=== PATIENT | female | born 1940 | race Caucasian/White ===

== ENCOUNTER → 2017-07-07 | Outpatient (CLI) | payer OTHER ==
[~2017-07-07] MED LIST: ASPI81CH; ATOR40TA PO; COLCRYS0.6 MG PO; DILTIAZEM 24HR180 MG PO; Flecainide Acet50 MG PO; IBUP400 PO; IBUP600 PO; IBUP800; LISI20 PO; METF500C PO; NEBI5 PO; OMEP20ER PO; PERI4; PHENA200 PO; RXPHEN200 PO; RXSULTRIDS PO; SULTRIDS PO; XARELTO20 MG PO; ZESTRIL40 MG PO
== END | disposition home or self-care (01) ==
LOC: LAB 16:05 → LAB SHORT 16:05
DX: R10.2 Pelvic and perineal pain (principal)
CPT/HCPCS: 87077; 87086; 87186

== ENCOUNTER → 2018-11-30 | Outpatient (CLI) | payer OTHER ==
[~2018-11-30] MED LIST changes: +ACET500 PO; -ASPI81CH; +ASPI81CH PO; +ATOR20 PO; +DILT180 PO; +Macrobid 100 M100 MG PO; +Pyridium200 MG PO
== END | disposition home or self-care (01) ==
LOC: LAB 16:55 → LAB SHORT 16:55
DX: N39.0 Urinary tract infection, site not specified (principal)
CPT/HCPCS: 87077; 87086; 87186

== ENCOUNTER 2019-06-07 17:12 | Emergency (ER) | payer OTHER ==
[~2019-06-07] VITALS: Ht 167.6 cm; Wt 113.4 kg
[2019-06-07 17:48] LABS: BASOPHILS ABSOLUTE AUTO 0.06 K/mm3 (0.00-0.23); BASOPHILS PERCENT AUTO 1 % (0-2); EOSINOPHILS ABSOLUTE AUTO 0.37 K/mm3 (0.00-0.68); EOSINOPHILS PERCENT AUTO 6 % (0-6); Hematocrit 46.2 % (33.0-51.0); Hemoglobin 15.2 g/dL (11.5-16.0); IMMATURE GRAN ABSOLUTE AUTO 0.01 K/mm3 (0.00-0.10); IMMATURE GRAN PERCENT AUTO 0 % (0-1); LYMPHOCYTES PERCENT AUTO 23 % (21-46); MONOCYTES ABSOLUTE AUTO 1.32 K/mm3 (0.16-1.47); MONOCYTES PERCENT AUTO 22 % (4-13); Mean Corpuscular HGB 29.6 pg (26.0-34.0); Mean Corpuscular HGB Conc 32.9 g/dL (31.5-36.5); Mean Corpuscular Volume 90 fL (80-100); Mean Platelet Volume 9.3 fL (9.1-12.4); NEUTROPHILS ABSOLUTE AUTO 2.94 K/mm3 (1.96-9.15); NEUTROPHILS PERCENT AUTO 48 % (41-73); Platelet Count 205 K/mm3 (150-400); RDW Coefficient Variation 13.8 % (11.7-14.2); RDW Standard Deviation 46.3 fL (35.1-46.3); Red Blood Cell Count 5.13 M/mm3 (3.80-5.20)
[2019-06-07 18:05] LABS: Albumin, Blood 3.5 g/dL (3.4-5.0); Albumin/Globulin Ratio 0.8 (0.8-1.8); Bilirubin, Total 0.3 mg/dL (0.1-1.0); Bun/Creatinine Ratio 16.3 (12.0-20.0); Calcium, Blood 10.1 mg/dL (8.5-10.1); Creatinine, Blood 1.04 mg/dL (0.40-1.00); Globulin, Blood 4.2 g/dL (2.2-4.0); Total Protein, Blood 7.7 g/dL (6.4-8.2); Troponin I 0.031 ng/mL (0.000-0.040)
[2019-06-07 18:31] LABS: Source, Urine Clean Catch
[2019-06-07 18:36] LABS: Bilirubin, Urine Neg (Neg); Blood, Urine 3+ (Neg); Glucose Qualitative, Urine Neg (Neg); Ketones, Urine 1+ (Neg); Leukocyte Esterase, Urine 1+ (Neg); Nitrite, Urine Neg (Neg); Protein, Urine 2+ (Neg); Urobilinogen, Urine 1+ (Normal)
[2019-06-07 18:45] LABS: Appearance, Urine Hazy (Clear); Color, Urine Yellow (P-Yellow)
[2019-06-07 18:46] LABS: Bacteria Many /hpf; Calcium Oxalate Crystals Many /hpf; Red Blood Cells, Urine 0-2 /hpf (0-2); Squamous Epithelial Cells Many /hpf (Few)
[2019-06-07] MEDS ORDERED: Roxicodone5 MG PO (18:54)
== END 2019-06-07 19:34 | disposition home or self-care (01) ==
LOC: ER 17:12
PROVIDERS: Physician Assistant
DX: R10.31 Right lower quadrant pain (principal); E11.9 Type 2 diabetes mellitus without complications; E78.5 Hyperlipidemia, unspecified; K21.9 Gastro-esophageal reflux disease without esophagitis; I48.91 Unspecified atrial fibrillation; I10 Essential (primary) hypertension
CPT/HCPCS: 36415; 74176; 80053; 81001; 83690; 84484; 85025; 87077; 87086; 87186; 96361; 96374; 96375; 99284-25; J1170; J2405; J7030

== ENCOUNTER → 2020-03-15 | Outpatient (CLI) | payer OTHER ==
[~2020-03-15] MED LIST changes: +Roxicodone5 MG PO
== END | disposition home or self-care (01) ==
LOC: LAB 17:51 → LAB SHORT 17:51
DX: N39.0 Urinary tract infection, site not specified (principal)
CPT/HCPCS: 87077; 87086; 87186

== ENCOUNTER → 2021-05-14 | Outpatient (CLI) | payer OTHER | END | disposition home or self-care (01) | LOC: LAB SHORT 13:30 → LAB 13:30 | DX: N39.0 Urinary tract infection, site not specified (principal) | CPT/HCPCS: 87077; 87086; 87186 ==

== ENCOUNTER → 2021-06-23 | Outpatient (CLI) | payer OTHER | END | disposition home or self-care (01) | LOC: LAB SHORT 11:37 → LAB 11:37 | DX: R30.0 Dysuria (principal) | CPT/HCPCS: 87077; 87086; 87186 ==

== ENCOUNTER → 2021-07-01 | Outpatient (CLI) | payer OTHER | END | disposition home or self-care (01) | LOC: LAB SHORT 14:45 → LAB 14:45 | DX: R30.0 Dysuria (principal) | CPT/HCPCS: 87077; 87086; 87186 ==

== ENCOUNTER → 2022-06-17 | Outpatient (CLI) | payer OTHER | LOC: LAB 10:30 → LAB SHORT 10:30 | DX: N39.0 Urinary tract infection, site not specified (principal) | CPT/HCPCS: 87077; 87086; 87186 ==

== ENCOUNTER → 2022-10-08 | Outpatient (CLI) | payer OTHER | END | disposition home or self-care (01) | LOC: LAB 15:08 → LAB SHORT 15:08 | DX: R35.0 Frequency of micturition (principal) | CPT/HCPCS: 87086 ==

== ENCOUNTER → 2022-10-22 | Outpatient (CLI) | payer OTHER | LOC: LAB 14:45 → LAB SHORT 14:45 | DX: R30.0 Dysuria (principal) | CPT/HCPCS: 87086 ==

== ENCOUNTER → 2022-10-26 | Outpatient (CLI) | payer OTHER ==
[2022-10-27 18:20] LABS: Campylobacter Sp Not Detected (NOT DETECT)
[2022-10-27 18:21] LABS: Adenovirus F 40/41 Not Detected (NOT DETECT); Astrovirus Not Detected (NOT DETECT); Cryptosporidium Not Detected (NOT DETECT); Cyclospora Cayetanensis Not Detected (NOT DETECT); E. Coli O157 Not Detected (NOT DETECT); Entamoeba Histolytica Not Detected (NOT DETECT); Enteroaggregative E. coli-EAEC Not Detected (NOT DETECT); Enteropathogenic E. coli-EPEC Not Detected (NOT DETECT); Enterotoxigenic E. coli-ETEC Not Detected (NOT DETECT); Giardia Lamblia Not Detected (NOT DETECT); Norovirus GI/GII Detected (NOT DETECT); Plesiomonas Shigelloides Not Detected (NOT DETECT); Rotavirus A Not Detected (NOT DETECT); Salmonella Sp Not Detected (NOT DETECT); Sapovirus Not Detected (NOT DETECT); Shiga Toxin-prod E. coli-STEC Not Detected (NOT DETECT); Shigella/Enteroin E. coli-EIEC Not Detected (NOT DETECT); Vibrio Cholerae Not Detected (NOT DETECT); Vibrio Sp Not Detected (NOT DETECT); Yersinia Enterocolitica Not Detected (NOT DETECT)
== END | disposition home or self-care (01) ==
LOC: LAB 17:00 → LAB SHORT 17:00
PROVIDERS: Physician Assistant
DX: R19.7 Diarrhea, unspecified (principal)
CPT/HCPCS: 87507

== ENCOUNTER 2023-10-21 06:38 | Day surgery (SDC) | payer OTHER ==
[~2023-10-21] VITALS: Ht 170.2 cm; Wt 104.8 kg
[~2023-10-21 06:38] MED LIST changes: +AMLO10 PO; +CEFU250T47 PO; +CEPH500 PO; +GLIM2 PO; +Hair, Skin & N1 EACH PO; +MULTIVITAMIN PO
[2023-10-21 07:22] VITALS: BP 153/71
[2023-10-21] MEDS ORDERED: NS 250 ML IV ONE (07:30)
[2023-10-21] MEDS ORDERED: NS 500 ML IV ONE (08:27)
[2023-10-21] MEDS ORDERED: FentaNYL Citrate 50 MCG/ML 2 ML Injection ONE (08:27)
[2023-10-21] MEDS ORDERED: Midazolam HCl 1MG / ML 2ML Vial ONE (08:27)
[2023-10-21 09:08] VITALS: BP 152/88
[2023-10-21 09:15] VITALS: BP 143/116
[2023-10-21 09:30] VITALS: BP 131/104
--- NOTE | 2023-10-21 09:53 | NUR ---
PT VERBALIZES UNDESTANDING WRITTEN AND VERBAL INSTRUCTIONS. PT IV DC'.D CATH INTACT. PRESSURE DSG APPLIED. PT DRESSES SELF WITHOUT DIFF. DR ARREOLA SPOKE WITH PATIENT. [facility] WILL BE CONTACTING PT FOR A CONSULT/ LITHOTRIPSY. PT DC TO HOME VIA WC BY FAMILY.
== END 2023-10-21 12:11 | disposition home or self-care (01) ==
LOC: MHTC 06:38
PROC: 0T9430Z Drainage of Left Kidney Pelvis with Drainage Device, Percutaneous Approach (ICD-10-PCS; principal; 2023-10-21)
DX: N20.2 Calculus of kidney with calculus of ureter (principal); Z90.5 Acquired absence of kidney; Q60.0 Renal agenesis, unilateral; E11.9 Type 2 diabetes mellitus without complications; E78.5 Hyperlipidemia, unspecified; I10 Essential (primary) hypertension; K21.9 Gastro-esophageal reflux disease without esophagitis; Z88.0 Allergy status to penicillin; Z88.8 Allergy status to other drugs, medicaments and biological substances; Z79.899 Other long term (current) drug therapy
CPT/HCPCS: 76937; 99152; 99153; C1729; C1769; J2250; J3010; J7040; J7050; Q9967

== ENCOUNTER 2024-06-02 09:20 | Observation (INO) | payer OTHER ==
[~2024-06-02] VITALS: Ht 167.6 cm; Wt 96.9 kg
[2024-06-02] MEDS ORDERED: MethylPREDNISolone Sod Succ 125 MG Vial IV ONE (09:40)
[2024-06-02] MEDS ORDERED: Ipratropium/Albuterol SulF 2.5-0.5MG/3 ML Amp INH ONE (09:40)
[2024-06-02 10:00] LABS: BASOPHILS ABSOLUTE AUTO 0.05 K/mm3 (0.00-0.23); BASOPHILS PERCENT AUTO 0 % (0-2); EOSINOPHILS ABSOLUTE AUTO 0.08 K/mm3 (0.00-0.68); EOSINOPHILS PERCENT AUTO 1 % (0-6); Hematocrit 37.4 % (33.0-51.0); Hemoglobin 12.2 g/dL (11.5-16.0); IMMATURE GRAN ABSOLUTE AUTO 0.08 K/mm3 (0.00-0.10); IMMATURE GRAN PERCENT AUTO 1 % (0-1); LYMPHOCYTES ABSOLUTE AUTO 2.88 K/mm3 (0.84-5.20); LYMPHOCYTES PERCENT AUTO 21 % (21-46); MONOCYTES ABSOLUTE AUTO 1.71 K/mm3 (0.16-1.47); MONOCYTES PERCENT AUTO 12 % (4-13); Mean Corpuscular HGB 29.3 pg (26.0-34.0); Mean Corpuscular HGB Conc 32.6 g/dL (31.5-36.5); Mean Corpuscular Volume 90 fL (80-100); Mean Platelet Volume 8.4 fL (9.1-12.4); NEUTROPHILS ABSOLUTE AUTO 9.24 K/mm3 (1.96-9.15); NEUTROPHILS PERCENT AUTO 66 % (41-73); Platelet Count 330 K/mm3 (150-400); RDW Standard Deviation 45.7 fL (35.1-46.3); Red Blood Cell Count 4.17 M/mm3 (3.80-5.20); White Blood Cell Count 14.04 K/mm3 (4.00-11.30)
[2024-06-02 10:03] LABS: Base Excess Venous -2.1 mmol/L; Bicarbonate Venous 22.5 mmol/L (24.0-30.0); PCO2 Venous 44.8 mmHg (38-42); pH Blood Venous 7.33 (7.34-7.37)
[2024-06-02 10:21] LABS: Bun/Creatinine Ratio 14.5 (12.0-20.0); Calcium, Blood 10.3 mg/dL (8.5-10.1); Creatinine, Blood 1.73 mg/dL (0.40-1.00); Potassium, Blood 4.2 mmol/L (3.5-5.5)
[2024-06-02 10:49] LABS: Influenza A, PCR NEGATIVE (NEGATIVE); Influenza B, PCR NEGATIVE (NEGATIVE); Resp Syncytial Virus, PCR NEGATIVE (NEGATIVE); SARS-Cov-2 (COVID-19) PCR, MMC NEGATIVE (NEGATIVE)
[2024-06-02] MEDS ORDERED: Doxycycline Hyclate 100 MG in Dextrose 5% 250 ML IV ONE (13:35)
[2024-06-02] MEDS ORDERED: CefTRIAXone Sodium 1,000 MG in NS 100 ML IV ONE (13:35)
[2024-06-02] MEDS ORDERED: OXYB5 PO (14:31)
[2024-06-02] MEDS ORDERED: TAMSULOSIN HCL0.4 M1 PO (14:32)
[2024-06-02] MEDS ORDERED: OXYC5 PO (14:32)
[2024-06-02] MEDS ORDERED: VITAMIN D5000 UNIT PO (14:35)
[2024-06-02] MEDS ORDERED: Morphine Sulfate 20 MG/1ML 1 ML Oral Syringe SL PRN (16:20)
[2024-06-02] MEDS ORDERED: LORazepam 1 MG Tab PO PRN (16:20)
[2024-06-02] MEDS ORDERED: Zolpidem Tartrate 5 MG Tab PO PRN (16:25)
[2024-06-02] MEDS ORDERED: Ondansetron 4 MG TAB PO PRN (16:25)
[2024-06-02] MEDS ORDERED: FLU VACC TS2024-25(6MOS UP)/PF 45 MCG/0.5 ML SYRINGE IM SCH (16:25)
[2024-06-02] MEDS ORDERED: Ondansetron HCl 2 MG / ML 2ML Vial IV PRN (16:25)
--- NOTE | 2024-06-02 17:10 | NUR ---
PT GOING HOME WITH [facility] TOMORROW MORNING; RIDE SET UP FOR 10AM. [facility] TO DELIVER O2, HOSPITAL BED AND OVERBED TABLE PRIOR TO RIDE. HOSPICE MEDICATIONS WILL BE ORDERED BY [facility]. PT FILLED OUT NEW POLST, DNR WITH COMFORT CARE. WILL FOLLOW UP IN THE MORNING NEEDED PRIOR TO DISCHARGE.
[2024-06-02 21:00] VITALS: BP 143/60
[2024-06-02] MEDS ORDERED: Magnesium Hydroxide Conc 10 ML UDC PO SCH (21:00)
--- NOTE | 2024-06-03 06:25 | NUR ---
SHIFT SUMMARY PT A&OX3-4 AND ANSWERS QUESTIONS APPROPRIATELY. PT ARRIVED ON UNIT AROUND 2100 VIA GURNEY AND WAS TRANSFERRED VIA SLIDESHEET TO BED. PT ON COMFORT CARE. PT RECEIVED SCHEDULED AND PRN MEDICATIONS. PT RECEIVED A PARTIAL SPONGE BATH, BUT REQUESTS SHOWER TO BE HAD DURING DAY SHIFT. PT SPENT MOST OF SHIFT IN BED WITH EYES CLOSED AND RESPIRATIONS EVEN AND UNLABORED. NO ACUTE EVENTS AT THIS TIME. REPOSITONED Q2HRS. CALL LIGHT IN REACH, FALL PRECAUTIONS IN PLACE.
[2024-06-03] MEDS ORDERED: LORA1 PO (10:00)
[2024-06-03] MEDS ORDERED: ONDA4 PO (10:00)
[2024-06-03] MEDS ORDERED: ZOLP5 PO (10:01)
--- NOTE | 2024-06-03 12:14 | NUR ---
PT WAS DISCHARGED HOME WITH HOSPICE. ALL PIV'S REMOVED. PT HAS DISCHARGE PAPER WORK WITH H[facility] SCRIPTS. THIS NURSE FAXED MEDICATIONS TO TO BE FILLED AT [facility]. PT HAS NO QUESTIONS OR CONCERNS.
== END 2024-06-03 12:50 | disposition hospice, home (50) ==
LOC: ER 09:20 → MEDS 09:21 → ERHOLD 09:21 → MEDS 21:35
PROVIDERS: Emergency Medicine; ADMIT Internal Medicine
DX: J96.01 Acute respiratory failure with hypoxia (principal); C34.92 Malignant neoplasm of unspecified part of left bronchus or lung; C34.91 Malignant neoplasm of unspecified part of right bronchus or lung; E11.9 Type 2 diabetes mellitus without complications; I10 Essential (primary) hypertension; I48.91 Unspecified atrial fibrillation; K21.9 Gastro-esophageal reflux disease without esophagitis; Z51.5 Encounter for palliative care; Z93.6 Other artificial openings of urinary tract status; Z88.8 Allergy status to other drugs, medicaments and biological substances; Z79.899 Other long term (current) drug therapy
CPT/HCPCS: 0241U; 71045; 71260; 80048; 82803; 83880; 84484; 85025; 85379; 93005; 93010; 94640; 94664; 96365; 96375; 99285-25; A9270; G0378; J0696; J2919; J7060; Q9967

== ENCOUNTER 2024-06-22 17:58 | Inpatient (IN) | payer OTHER ==
[~2024-06-22] VITALS: Ht 167.6 cm; Wt 95.8 kg
[~2024-06-22 17:58] MED LIST changes: +ATOR10 PO; +DILT120 PO; +Flomax0.4 MG PO; +LORA1 PO; +ONDA4 PO; +OXYB5 PO; +OXYC5 PO; +TAMSULOSIN HCL0.4 M1 PO; +VITAMIN D5000 UNIT PO; +ZOLP5 PO
[2024-06-22 18:58] LABS: BASOPHILS ABSOLUTE AUTO 0.07 K/mm3 (0.00-0.23); BASOPHILS PERCENT AUTO 1 % (0-2); EOSINOPHILS PERCENT AUTO 1 % (0-6); Hematocrit 46.3 % (33.0-51.0); Hemoglobin 14.6 g/dL (11.5-16.0); IMMATURE GRAN ABSOLUTE AUTO 0.03 K/mm3 (0.00-0.10); IMMATURE GRAN PERCENT AUTO 0 % (0-1); LYMPHOCYTES ABSOLUTE AUTO 1.34 K/mm3 (0.84-5.20); LYMPHOCYTES PERCENT AUTO 14 % (21-46); MONOCYTES ABSOLUTE AUTO 1.04 K/mm3 (0.16-1.47); MONOCYTES PERCENT AUTO 11 % (4-13); Mean Corpuscular HGB 28.9 pg (26.0-34.0); Mean Corpuscular HGB Conc 31.5 g/dL (31.5-36.5); Mean Corpuscular Volume 92 fL (80-100); Mean Platelet Volume 9.1 fL (9.1-12.4); NEUTROPHILS ABSOLUTE AUTO 6.74 K/mm3 (1.96-9.15); NEUTROPHILS PERCENT AUTO 72 % (41-73); Platelet Count 232 K/mm3 (150-400); RDW Standard Deviation 49.8 fL (35.1-46.3); Red Blood Cell Count 5.05 M/mm3 (3.80-5.20); White Blood Cell Count 9.32 K/mm3 (4.00-11.30)
[2024-06-22 19:27] LABS: Albumin, Blood 2.9 g/dL (3.4-5.0); Albumin/Globulin Ratio 0.6 (0.8-1.8); Bilirubin, Total 0.7 mg/dL (0.1-1.0); Bun/Creatinine Ratio 15.6 (12.0-20.0); Calcium, Blood 10.5 mg/dL (8.5-10.1); Creatinine, Blood 1.8 mg/dL (0.40-1.00); Globulin, Blood 4.9 g/dL (2.2-4.0); Potassium, Blood 5.3 mmol/L (3.5-5.5); Total Protein, Blood 7.8 g/dL (6.4-8.2)
[2024-06-22 21:50] LABS: Magnesium, Blood 2.5 mg/dL (1.6-2.4)
[2024-06-22 22:42] LABS: Anti-Xa UFH, PHA Monitoring <0.10 IU/mL; International Normalized Ratio 1.08; Prothrombin Time Results 11.5 Sec (9.7-11.5)
[2024-06-22] MEDS ORDERED: FLU VACC TS2024-25(6MOS UP)/PF 45 MCG/0.5 ML SYRINGE IM ONE (22:45)
[2024-06-22] MEDS ORDERED: Heparin Sodium 5000 Units/ML 1ML MDV IV ONE (23:15)
[2024-06-22] MEDS ORDERED: Heparin Sodium,Porcine/0.5 NS 500 ML IV SCH (23:20)
[2024-06-22 23:59] LABS: Influenza A, PCR NEGATIVE (NEGATIVE); Influenza B, PCR NEGATIVE (NEGATIVE); Resp Syncytial Virus, PCR NEGATIVE (NEGATIVE); SARS-Cov-2 (COVID-19) PCR, MMC NEGATIVE (NEGATIVE)
[2024-06-23 00:54] VITALS: BP 126/70
[2024-06-23] MEDS ORDERED: Acetaminophen 325 MG TABLET PO PRN (01:25)
--- NOTE | 2024-06-23 03:25 | NUR ---
SHIFT SUMMURY: TRANSFERED FROM ER REPORT RECEIVED FROM MARY TYLER. ALERT AND ORIENTED X 4. ON 6 L NASAL CANULA. SATURATION >90 AT REST AND DESATURATES WITH ACTIVITES TO 88%. HEART RATE 86 NORMAL SINUS RYTHM.ON HEPARIN DRIP FOR PE AT 18U/KG/HR OR 27.0 ML. NO SIGNS OF BLEEDING NOTED. REDDENED COCCYX AREA STAGE I PRESSUREINJURY PHYSICIAN AWARE. ON CONTACT ISOLATION FOR ESBL. C/O PAIN OF BILATERAL HIP CHRONIC PAIN PER PATIENT.MEDICATED FOR PAIN AND REPORTS RELIEF. PATIENT EXPRESSED HER WISHES FOR DNR TO PHYSICIAN AT BEDSIDE. CODE STATUS CHANGED TO DNR. PUREWICK IN PLACE. BED IS AT THE LOWEST POSITON AND CALL ZELAYA IS WITHIN REACH.
[2024-06-23 04:34] VITALS: BP 117/55
[2024-06-23 06:30] LABS: BASOPHILS ABSOLUTE AUTO 0.08 K/mm3 (0.00-0.23); BASOPHILS PERCENT AUTO 1 % (0-2); EOSINOPHILS ABSOLUTE AUTO 0.16 K/mm3 (0.00-0.68); EOSINOPHILS PERCENT AUTO 2 % (0-6); Hematocrit 41.6 % (33.0-51.0); Hemoglobin 13.1 g/dL (11.5-16.0); IMMATURE GRAN ABSOLUTE AUTO 0.03 K/mm3 (0.00-0.10); IMMATURE GRAN PERCENT AUTO 0 % (0-1); LYMPHOCYTES ABSOLUTE AUTO 2.96 K/mm3 (0.84-5.20); LYMPHOCYTES PERCENT AUTO 28 % (21-46); MONOCYTES ABSOLUTE AUTO 1.67 K/mm3 (0.16-1.47); MONOCYTES PERCENT AUTO 16 % (4-13); Mean Corpuscular HGB Conc 31.5 g/dL (31.5-36.5); Mean Corpuscular Volume 92 fL (80-100); Mean Platelet Volume 9.6 fL (9.1-12.4); NEUTROPHILS ABSOLUTE AUTO 5.55 K/mm3 (1.96-9.15); NEUTROPHILS PERCENT AUTO 53 % (41-73); Platelet Count 195 K/mm3 (150-400); RDW Coefficient Variation 14.9 % (11.7-14.2); RDW Standard Deviation 49.7 fL (35.1-46.3); Red Blood Cell Count 4.52 M/mm3 (3.80-5.20); White Blood Cell Count 10.45 K/mm3 (4.00-11.30)
[2024-06-23 06:57] LABS: Albumin, Blood 2.5 g/dL (3.4-5.0); Albumin/Globulin Ratio 0.6 (0.8-1.8); Bilirubin, Total 0.6 mg/dL (0.1-1.0); Bun/Creatinine Ratio 16.8 (12.0-20.0); Calcium, Blood 9.8 mg/dL (8.5-10.1); Creatinine, Blood 1.9 mg/dL (0.40-1.00); Globulin, Blood 4.1 g/dL (2.2-4.0); Magnesium, Blood 2.5 mg/dL (1.6-2.4); Potassium, Blood 4.5 mmol/L (3.5-5.5); Total Protein, Blood 6.6 g/dL (6.4-8.2)
[2024-06-23] MEDS ORDERED: Dose Adjust by Pharmacy XX STA ×2 (07:10→14:35)
[2024-06-23] MEDS ORDERED: Insulin Human Lispro 100 Units/ML 3ML Syringe SC SCH (07:30)
[2024-06-23 07:36] VITALS: BP 130/59
[2024-06-23] MEDS ORDERED: AMLO5 PO (09:59)
[2024-06-23] MEDS ORDERED: ONDA4 PO (10:02)
[2024-06-23] MEDS ORDERED: ZOLP5 PO (10:03)
[2024-06-23] MEDS ORDERED: NITR100CA PO (10:04)
--- NOTE | 2024-06-23 11:49 | NUR ---
Spiritual Care | Pt. Request Pt. is awake in bed when she welcomes my visit. Pt. is pleasant. facilitae a life review and Pt. verbalizes a good deal of her life story, including the fairly recent adoption of her 6 yr. old great granddaughter. Listen with interest and empathy. Pt. verbalizes that she does not have any great pain, except for some bedsores, and that she felt frustrated by not being able to be mobile. We Considered many personal areas of mohan and belief. Pastoral counseling and encouragement is given. Pt. verbalized gratitude for the "good word" that was given. Prayed with Pt. Pt. verbalized gratitude for the time spent and the spiritual care given.
[2024-06-23] MEDS ORDERED: Banana Flakes/Tos 1 EA Powder Pack PO PRN (12:05)
[2024-06-23] MEDS ORDERED: Docusate Sodium 100 MG Cap PO PRN (12:05)
[2024-06-23 15:00] VITALS: BP 106/51
--- NOTE | 2024-06-23 17:27 | NUR ---
SHIFT SUMMARY PT A&OX4. SP02>90% ON 6L NC. SOB W/ EXERTION/LAYING FLAT. TELEMETRY SHOWS NSR, HR 80'S. C/O OF ARTHRITIC HIP PAIN, MEDICATED W/ TYLENOL PER EMAR X1. BED CARTER USED TO VOID. NO BM THIS SHIFT. PT STATES, NO BM X4 DAYS, BOWEL CARE ADDED TO EMAR. ECHO DONE THIS SHIFT. HEP GTT INFUSING PER EMAR. UPDATED DAUGHTER, HOWARD. DAUGHTER ASKING FOR PT TO BE ORDERED MED REC DONE. PT SITTING UP IN BED, EATING DINNER. CALL LIGHT IN REACH.
--- NOTE | 2024-06-23 19:52 | NUR ---
ASSUMPTION OF CARE ASSUMED PT'S CARE AT 1900,BEDSIDE [facility].PT RESTING IN BED WITH EYES CLOSED,NO S/S OF PAIN OR DISCOMFORT NOTED.BREATHING EVEN AND NON LABORED,ON 6L OXYGEN VIA HUMIDIFIED NC.CALL LIGHT ND PT'S ITEMS WITHIN REACH.WILL CONTINUE TO MONITOR.
[2024-06-23 20:16] VITALS: BP 129/67
[2024-06-23 22:52] LABS: Source, Urine Clean Catch
[2024-06-23 22:55] LABS: Bilirubin, Urine Neg (Neg); Blood, Urine 5+ (Neg); Glucose Qualitative, Urine Neg (Neg); Ketones, Urine Neg (Neg); Leukocyte Esterase, Urine 3+ (Neg); Nitrite, Urine Pos (Neg); Protein, Urine 3+ (Neg); Specific Gravity, Urine 1.015 (1.003-1.022); Urobilinogen, Urine NORM (Normal)
[2024-06-23 23:00] LABS: Appearance, Urine Cloudy (Clear); Color, Urine Yellow (P-Yellow)
[2024-06-23 23:02] LABS: Bacteria Many /hpf; Squamous Epithelial Cells Few /hpf (Few); White Blood Cells, Urine TNTC /hpf (0-5)
[2024-06-24 00:45] VITALS: BP 129/65
[2024-06-24 02:14] LABS: BASOPHILS ABSOLUTE AUTO 0.05 K/mm3 (0.00-0.23); BASOPHILS PERCENT AUTO 1 % (0-2); EOSINOPHILS ABSOLUTE AUTO 0.49 K/mm3 (0.00-0.68); EOSINOPHILS PERCENT AUTO 6 % (0-6); Hematocrit 39.5 % (33.0-51.0); Hemoglobin 12.3 g/dL (11.5-16.0); IMMATURE GRAN ABSOLUTE AUTO 0.02 K/mm3 (0.00-0.10); IMMATURE GRAN PERCENT AUTO 0 % (0-1); LYMPHOCYTES ABSOLUTE AUTO 2.03 K/mm3 (0.84-5.20); LYMPHOCYTES PERCENT AUTO 25 % (21-46); MONOCYTES ABSOLUTE AUTO 1.23 K/mm3 (0.16-1.47); MONOCYTES PERCENT AUTO 15 % (4-13); Mean Corpuscular HGB 29.1 pg (26.0-34.0); Mean Corpuscular HGB Conc 31.1 g/dL (31.5-36.5); Mean Corpuscular Volume 93 fL (80-100); Mean Platelet Volume 9.7 fL (9.1-12.4); NEUTROPHILS ABSOLUTE AUTO 4.25 K/mm3 (1.96-9.15); NEUTROPHILS PERCENT AUTO 53 % (41-73); Platelet Count 203 K/mm3 (150-400); RDW Coefficient Variation 14.8 % (11.7-14.2); RDW Standard Deviation 50.3 fL (35.1-46.3); Red Blood Cell Count 4.23 M/mm3 (3.80-5.20); White Blood Cell Count 8.07 K/mm3 (4.00-11.30)
[2024-06-24 02:33] LABS: Albumin, Blood 2.4 g/dL (3.4-5.0); Albumin/Globulin Ratio 0.6 (0.8-1.8); Bilirubin, Total 0.3 mg/dL (0.1-1.0); Bun/Creatinine Ratio 20.4 (12.0-20.0); Calcium, Blood 9.3 mg/dL (8.5-10.1); Creatinine, Blood 1.57 mg/dL (0.40-1.00); Globulin, Blood 3.9 g/dL (2.2-4.0); Potassium, Blood 4.5 mmol/L (3.5-5.5); Total Protein, Blood 6.3 g/dL (6.4-8.2)
[2024-06-24] MEDS ORDERED: Dose Adjust by Pharmacy XX STA (03:13)
[2024-06-24 04:45] VITALS: BP 145/65
--- NOTE | 2024-06-24 06:48 | NUR ---
PT HAS BEEN SLEEPING ON/OFF THROUGHOUT THE NIGHT.MAINTAINED OXYGEN SATURATION >92% ON 4L VIA NC.HEPARIN GTT INFUSING AND TITRATED ORDERED.PT EDUCATED ON THE S/S OF BLEEDING.PT VERBALIZES UNDERSTANDING.PT DENIES PAIN,DENIES NEEDS AT THIS TIME.CALL LIGHT AND PT'S ITEMS WITHIN REACH.WILL GIVE REPORT TO DAYSHIFT NURSE FOR CONTINUITY OF CARE.
[2024-06-24 07:49] VITALS: BP 128/65
[2024-06-24] MEDS ORDERED: CefTRIAXone Sodium 1,000 MG in NS 100 ML IV SCH (11:00)
[2024-06-24 11:48] VITALS: BP 135/72
[2024-06-24 15:06] VITALS: BP 130/67
--- NOTE | 2024-06-24 18:00 | NUR ---
SHIFT SUMMARY PT REMAINS ALERT AND ORIENTED. BP STABLE. HR REMAINS NSR. PT COMPLAINED OF PAIN IN HER HIPS THAT WAS RELEIVED WITH MEDICATION ADMINISTRATION AND REPOSITIONING. O2 SATS HAVE REMAINED ABOVE 90% ON 4L NC. PT REPORTS BREATHING HAS IMPROVED. PT UP TODAY AT THE SIDE OF THE BED WITH PHYSICAL THERAPY. PUREWICK DEVICE IN PLACE FOR INCONTINENCE. WILL CONTINUE PLAN OF CARE AND REPORT OFF TO ONCOMING RN
--- NOTE | 2024-06-24 19:25 | NUR ---
ASSUMPTION OF CARE ASSUMED PT'S CARE AT 1900,BEDSIDE REPORT COMPLETED WITH [facility] NURSE.PT AWAKE WATCHING TV.PLAN OF CARE REVIEWED.PT DENIES PAIN,DENIES SOB,DENIES NEEDS AT THIS TIME.CALL LIGHT AND PT'S ITEMS WITHIN REACH,WILL CONTINUE TO MONITOR.
[2024-06-24 20:09] VITALS: BP 133/66
[2024-06-25 00:23] VITALS: BP 153/65
[2024-06-25 03:30] LABS: Hemoglobin 11.9 g/dL (11.5-16.0); Mean Platelet Volume 9.7 fL (9.1-12.4); Platelet Count 220 K/mm3 (150-400)
[2024-06-25 04:24] VITALS: BP 140/60
[2024-06-25] MEDS ORDERED: Dose Adjust by Pharmacy XX STA (04:32)
--- NOTE | 2024-06-25 06:19 | NUR ---
PT SLEPT MOST OF THE NIGHT,PT'S OXYGEN SATURATION >91% ON 4L VIA NC.PT OCCASIONALLY TOOK THE THE NASAL CANNULA OFF AND OXYGEN SATURATION WOULD DROP DOWN TO 81%.PT DENIES PAIN,DENIES SOB ,DENIES NEEDS AT THIS TIME.HEPARIN GTT INFUSING ORDERED.WILL GIVE REPORT TO DAYSHIFT NURSE FOR CONTINUITY OF CARE.CALL LIGHT ND PT'S ITEMS WITHIN REACH.
[2024-06-25 07:49] VITALS: BP 146/62
[2024-06-25 11:17] VITALS: BP 148/70
[2024-06-25] MEDS ORDERED: CefOXitin Sodium 1,000 MG in NS 50 ML IV SCH (13:00)
[2024-06-25 15:15] VITALS: BP 128/74
--- NOTE | 2024-06-25 17:09 | NUR ---
SHIFT SUMMARY PT REMAINS ALERT AND ORIENTED. BP STABLE. HR REMAINS NSR 80'S. PT DENIES ANY PAIN. O2 SATS HAVE REMAINED ABOVE 90% ON 4L NC. PT UP TO CHAIR WITH 1 ASSIST THIS SHIFT. PT NOW USING THE BSC NEEDED AND NO LONGER USING THE PUREWICK DEVICE TO VOID. HEP GTT CONTINUES TO INFUSE PER ORDERS. WILL CONTINUE PLAN OF CARE AND REPORT OFF TO ONCOMING RN
--- NOTE | 2024-06-25 19:39 | NUR ---
ASSUMPTION OF CARE ASSUMED PT'S CARE AT 1900,JAY REPORT COMPLETED WITH [facility] NURSE.PT WIDE AWAKE WATCHING TV AND USING HER TABLET TOO.PLAN OF CARE REVIEWED.HEPARIN INFUSING AT 17UNITS/KG/HR.PT DENIES PAIN,DENIES SOB,DENIES NEEDS.CALL LIGHT AND PT'S ITEMS WITHIN REACH.WILL CONTINUE TO MONITOR.
[2024-06-25 20:01] VITALS: BP 131/63
[2024-06-26] VITALS (7 sets, daily range): BP systolic 125–162; BP diastolic 59–71
[2024-06-26 03:03] LABS: BASOPHILS ABSOLUTE AUTO 0.05 K/mm3 (0.00-0.23); BASOPHILS PERCENT AUTO 1 % (0-2); EOSINOPHILS ABSOLUTE AUTO 0.35 K/mm3 (0.00-0.68); EOSINOPHILS PERCENT AUTO 5 % (0-6); Hematocrit 39.4 % (33.0-51.0); Hemoglobin 12.1 g/dL (11.5-16.0); IMMATURE GRAN ABSOLUTE AUTO 0.03 K/mm3 (0.00-0.10); IMMATURE GRAN PERCENT AUTO 1 % (0-1); LYMPHOCYTES ABSOLUTE AUTO 1.86 K/mm3 (0.84-5.20); LYMPHOCYTES PERCENT AUTO 29 % (21-46); MONOCYTES ABSOLUTE AUTO 0.98 K/mm3 (0.16-1.47); MONOCYTES PERCENT AUTO 15 % (4-13); Mean Corpuscular HGB Conc 30.7 g/dL (31.5-36.5); Mean Corpuscular Volume 95 fL (80-100); Mean Platelet Volume 9.3 fL (9.1-12.4); NEUTROPHILS ABSOLUTE AUTO 3.18 K/mm3 (1.96-9.15); NEUTROPHILS PERCENT AUTO 49 % (41-73); Platelet Count 227 K/mm3 (150-400); RDW Coefficient Variation 15.4 % (11.7-14.2); Red Blood Cell Count 4.17 M/mm3 (3.80-5.20); White Blood Cell Count 6.45 K/mm3 (4.00-11.30)
[2024-06-26 03:21] LABS: Albumin, Blood 2.3 g/dL (3.4-5.0); Albumin/Globulin Ratio 0.6 (0.8-1.8); Bilirubin, Total 0.2 mg/dL (0.1-1.0); Bun/Creatinine Ratio 15.3 (12.0-20.0); Calcium, Blood 9.8 mg/dL (8.5-10.1); Creatinine, Blood 1.24 mg/dL (0.40-1.00); Globulin, Blood 4.1 g/dL (2.2-4.0); Potassium, Blood 4.7 mmol/L (3.5-5.5); Total Protein, Blood 6.4 g/dL (6.4-8.2)
[2024-06-26] MEDS ORDERED: Dose Adjust by Pharmacy XX STA (04:26)
--- NOTE | 2024-06-26 06:29 | NUR ---
PT REPORTS THAT SHE HAD A RESTFUL NIGHT BETTER THAN THE PREVIOUS NIGHT.OXYGEN SATURATION >91% ON 4L.HEPARIN GTT INFUSING ORDERED.PT DENIES PAIN,DENIES NEEDS.CALL LIGHT AND PT'S ITEMS WITHIN REACH.WILL GIVE REPORT TO DAYSHIFT NURSE FOR CONTINUITY OF CARE.
--- NOTE | 2024-06-26 08:00 | NUR ---
[place] of care: Alert & oriented. In NSR in 80-90s. Blood pressure stable. Oxygen saturations stable on 4L NC with diminished breath sounds & non-productive cough. Taking good PO. Heparin gtt at 17 units/kg/hr. Will continue to monitor.
--- NOTE | 2024-06-26 17:15 | NUR ---
Shift summary: Remains alert & oriented. OOB to chair for part of the day. In NSR in 70-90s. SBP 120-140. On 4L NC with stable oxygen sats. Diminished lung sounds. Voiding in bsc. Good PO intake. Heparin gtt remains at 17 units/kg/hr. Orders for med no tele. Will await bed transfer & continu to monitor.
--- NOTE | 2024-06-26 19:41 | NUR ---
ASSUMPTION OF CARE PT SLEEPING,OPENS EYES UPON NURSES ENTERING THE ROOM.BEDSIDE REPORT COMPLETED.PT DENIES PAIN,DENIES CHEST PAIN,DENIES NEEDS.PT'S OXYGEN SATURATION 99% ON 4L,OXYGEN FLOW RATE TITRATED DOWN TO 2L.PLAN OF CARE REVIEWED.CALL LIGHT AND PT'S ITEMS WITHIN REACH.WILL CONTINUE TO MONITOR.
[2024-06-27 00:28] VITALS: BP 145/71
[2024-06-27 03:40] LABS: BASOPHILS ABSOLUTE AUTO 0.05 K/mm3 (0.00-0.23); BASOPHILS PERCENT AUTO 1 % (0-2); EOSINOPHILS PERCENT AUTO 7 % (0-6); Hematocrit 39.3 % (33.0-51.0); Hemoglobin 12.1 g/dL (11.5-16.0); IMMATURE GRAN ABSOLUTE AUTO 0.04 K/mm3 (0.00-0.10); IMMATURE GRAN PERCENT AUTO 1 % (0-1); LYMPHOCYTES ABSOLUTE AUTO 1.66 K/mm3 (0.84-5.20); LYMPHOCYTES PERCENT AUTO 27 % (21-46); MONOCYTES PERCENT AUTO 15 % (4-13); Mean Corpuscular HGB 28.7 pg (26.0-34.0); Mean Corpuscular HGB Conc 30.8 g/dL (31.5-36.5); Mean Corpuscular Volume 93 fL (80-100); Mean Platelet Volume 9.2 fL (9.1-12.4); NEUTROPHILS ABSOLUTE AUTO 3.08 K/mm3 (1.96-9.15); NEUTROPHILS PERCENT AUTO 50 % (41-73); Platelet Count 246 K/mm3 (150-400); RDW Coefficient Variation 15.5 % (11.7-14.2); RDW Standard Deviation 52.7 fL (35.1-46.3); Red Blood Cell Count 4.21 M/mm3 (3.80-5.20); White Blood Cell Count 6.13 K/mm3 (4.00-11.30)
[2024-06-27 03:57] LABS: Bun/Creatinine Ratio 13.6 (12.0-20.0); Calcium, Blood 10.6 mg/dL (8.5-10.1); Creatinine, Blood 1.1 mg/dL (0.40-1.00); Potassium, Blood 4.8 mmol/L (3.5-5.5)
[2024-06-27 04:37] VITALS: BP 144/60
[2024-06-27] MEDS ORDERED: Dose Adjust by Pharmacy XX STA (04:50)
--- NOTE | 2024-06-27 06:44 | NUR ---
PT SLEPT ON/OFF,ASSISTED TO THE BEDSIDE COMMODE OR BEDPAN PER PT'S REQUEST.PT'S OXYGEN TITRATED DOWN TO 2L,OXYGEN SATURATION >92% AT REST, REQUIRED INCREASE IN OXYGEN FLOWRATE TO 4L WITH ACTIVITY.PT REPORTS THAT SHE FLEELS CONSTIPATED,REFUSED THE PRN DOCUSATE.PT STATES THAT SHE WOULD LIKE AN ENEMA OR SUPPOSITORY.PT STATES THAT SHE HAS NOT HAD A BOWEL MOVEMENT FOR 6 DAYS.PT REMINDED THAT SHE HAD A BOWEL MOVEMENT ON WEDNESDAY.PT STATES THAT SHE STILL WANTS AN ENEMA.PT DENIES SOB,DENIES PAIN,DENIES FURTHER NEEDS.CALL LIGHT AND PT'S ITEMS WITHIN REACH.WILL GIVE REPORT TO DAYSHIFT NURSE FOR CONTINUITY OF CARE.
[2024-06-27 07:35] VITALS: BP 147/69
[2024-06-27 16:31] VITALS: BP 153/67
--- NOTE | 2024-06-27 18:51 | NUR ---
SHIFT SUMMARY: PT A&OX4. FOLLOWS COMMANDS AND MAKES NEEDS KNOWN TO STAFF. PT GO UP TO THE BSC WITH 1P SBA. DENIES ANY CP OR SOB DURING SHIFT. PT HAS SKIN BREAK DOWN TO HER COCCYX. A MEPALIX WAS APPLIED AND PT HAS BEEN TURNED Q2 HOURS. PT CONTINUES ON HEPARIN GTT. NO ACUTE CHANGES OR SIGNIFICANT EVENTS HAPPENED DURING THIS SHIFT. WILL CONTINUE TO CARE FOR PT TILL END OF SHIFT.
[2024-06-27 19:45] VITALS: BP 167/68
--- NOTE | 2024-06-27 21:13 | NUR ---
UP WT ASSIST TO BEDSIDE COMMODE, PT PULLED ON IV LINE AND CAUSED SLIGHT LEAK WITH CONNECTION. CONNECTION FIXED, SLIGHT BLEEDING OF AREA, PT REFUSED TO ALLOW DRESSING CHANGE, DRESSING CLEANED. AND REINFORCED. HEPARIN DRIP CONTINUES. CALL LIGHT IN REACH
[2024-06-28 00:32] VITALS: BP 160/61
--- NOTE | 2024-06-28 00:32 | NUR ---
TRANSFERRED TO [facility] ROOM 364 WITH ALL BELONGINGS AND MEDS. REMAINS ON O2 AT 2L/MIN PER NC. MED NURSE RECEIVED REPORT.
[2024-06-28 03:20] LABS: BASOPHILS ABSOLUTE AUTO 0.05 K/mm3 (0.00-0.23); BASOPHILS PERCENT AUTO 1 % (0-2); EOSINOPHILS ABSOLUTE AUTO 0.44 K/mm3 (0.00-0.68); EOSINOPHILS PERCENT AUTO 7 % (0-6); Hematocrit 39.5 % (33.0-51.0); Hemoglobin 12.3 g/dL (11.5-16.0); IMMATURE GRAN ABSOLUTE AUTO 0.03 K/mm3 (0.00-0.10); IMMATURE GRAN PERCENT AUTO 1 % (0-1); LYMPHOCYTES ABSOLUTE AUTO 1.86 K/mm3 (0.84-5.20); LYMPHOCYTES PERCENT AUTO 28 % (21-46); MONOCYTES ABSOLUTE AUTO 0.95 K/mm3 (0.16-1.47); MONOCYTES PERCENT AUTO 14 % (4-13); Mean Corpuscular HGB 28.8 pg (26.0-34.0); Mean Corpuscular HGB Conc 31.1 g/dL (31.5-36.5); Mean Corpuscular Volume 93 fL (80-100); Mean Platelet Volume 9.2 fL (9.1-12.4); NEUTROPHILS ABSOLUTE AUTO 3.31 K/mm3 (1.96-9.15); NEUTROPHILS PERCENT AUTO 50 % (41-73); Platelet Count 259 K/mm3 (150-400); RDW Coefficient Variation 15.5 % (11.7-14.2); RDW Standard Deviation 51.7 fL (35.1-46.3); Red Blood Cell Count 4.27 M/mm3 (3.80-5.20); White Blood Cell Count 6.64 K/mm3 (4.00-11.30)
[2024-06-28 03:25] LABS: Bun/Creatinine Ratio 12.1 (12.0-20.0); Calcium, Blood 10.9 mg/dL (8.5-10.1); Creatinine, Blood 1.07 mg/dL (0.40-1.00); Potassium, Blood 4.7 mmol/L (3.5-5.5)
[2024-06-28 04:26] VITALS: BP 166/63
[2024-06-28] MEDS ORDERED: Dose Adjust by Pharmacy XX STA (04:55)
[2024-06-28 07:41] VITALS: BP 169/69
--- NOTE | 2024-06-28 07:57 | NUR ---
TRANSFER NOTE RECIEVED PT FROM PCU 16 TO RM 364 AT 0030. THIS RN TO ASSUME CARE.
--- NOTE | 2024-06-28 07:58 | NUR ---
SHIFT SUMMARY PT HAS BEEN RESTING IN BED COMFORTABLY SINCE BEING TRANSFERRED OVERNIGHT. PT HAS BEEN AOX4, CALM AND COOPERATIVE. PT HAD NO COMPLAINTS. PT HAD UNEVENTFUL NIGHT.
[2024-06-28] MEDS ORDERED: NS 250 ML IV PRN (10:40)
[2024-06-28 15:20] VITALS: BP 150/68
--- NOTE | 2024-06-28 17:08 | NUR ---
Spiritual Care Visit. Pt. is awake in bed and pleasantly welcomes my visit. Daughter is at bedside. Facilitated anupdate and Pt. verbalized concern that she had not heard from her doctor today. Normalized the Pt. experience. Her DOCUMENT RESTORER Hillary popped in and gave words of encouragement to the Pt. Pt. displayed evidence of being encouraged. Prayed with the Pt. Pt. verbalized gratitude for the spiritual care visit and welcomed this livestock trader to return.
--- NOTE | 2024-06-28 19:55 | NUR ---
SHIFT SUMMARY- PT ALERT AND ORIENTED AND CALLS APPROPRIATELY. PT HAS HAD NO ACUTE CHANGE T/O THE DAY. SHE WAS IN BED SLEEPING AT THE TIME OF BEDSIDE REPORT. CALL LIGHT IN REACH, HEPARIN DRIP INFUSING. NO S&S OF DISTRESS NOTED.
[2024-06-28 20:13] VITALS: BP 164/56
[2024-06-29 03:32] LABS: BASOPHILS ABSOLUTE AUTO 0.06 K/mm3 (0.00-0.23); BASOPHILS PERCENT AUTO 1 % (0-2); EOSINOPHILS ABSOLUTE AUTO 0.39 K/mm3 (0.00-0.68); EOSINOPHILS PERCENT AUTO 6 % (0-6); Hematocrit 39.6 % (33.0-51.0); Hemoglobin 12.3 g/dL (11.5-16.0); IMMATURE GRAN ABSOLUTE AUTO 0.05 K/mm3 (0.00-0.10); IMMATURE GRAN PERCENT AUTO 1 % (0-1); LYMPHOCYTES ABSOLUTE AUTO 1.91 K/mm3 (0.84-5.20); LYMPHOCYTES PERCENT AUTO 30 % (21-46); MONOCYTES ABSOLUTE AUTO 0.96 K/mm3 (0.16-1.47); MONOCYTES PERCENT AUTO 15 % (4-13); Mean Corpuscular HGB 28.7 pg (26.0-34.0); Mean Corpuscular HGB Conc 31.1 g/dL (31.5-36.5); Mean Corpuscular Volume 93 fL (80-100); Mean Platelet Volume 8.9 fL (9.1-12.4); NEUTROPHILS ABSOLUTE AUTO 2.96 K/mm3 (1.96-9.15); NEUTROPHILS PERCENT AUTO 47 % (41-73); Platelet Count 250 K/mm3 (150-400); RDW Coefficient Variation 15.6 % (11.7-14.2); RDW Standard Deviation 52.6 fL (35.1-46.3); Red Blood Cell Count 4.28 M/mm3 (3.80-5.20); White Blood Cell Count 6.33 K/mm3 (4.00-11.30)
[2024-06-29 03:52] LABS: Calcium, Blood 10.7 mg/dL (8.5-10.1); Creatinine, Blood 1.18 mg/dL (0.40-1.00); Potassium, Blood 4.6 mmol/L (3.5-5.5)
--- NOTE | 2024-06-29 04:07 | NUR ---
SHIFT SUMMARY PATIENT HAD NO ACUTE CHANGES. ALERT, ORIENTED, AND ONE ASSIST TO BR. ON 2L O2 NC. CBG 124. PIVS INTACT. HEPARIN INFUSING @ 25.5 mL/HR MANAGED BY PHARMACY. IV ABX INFUSED. DENIES CHEST PAIN, SOB, AND N/V. VSS/AFEBRILE. SLEPT MOST OF THE SHIFT. CALL LIGHT IN REACH. BED IN LOWEST POSITION. WILL CONTINUE TO MONITOR UNTIL DAY SHIFT NURSE ASSUMES CARE.
[2024-06-29 05:18] VITALS: BP 147/64
[2024-06-29] MEDS ORDERED: Apixaban 5 MG Tab PO SCH (11:19)
--- NOTE | 2024-06-29 18:10 | NUR ---
SHIFT SUMMARY- PT WAS TRANSITIONED TO ELEQUIS FROM IV HEPARIN GTT. PT HAS 2 IV'S THAT ARE CURRENTLY SL. PLAN IS TO TITRATE THE PT O2 DOWN TO ROOM AIR IF POSSIBLE. PT PLAN TO DC HOME TOMORROW. DAUGHTER IS [employer]EL[employer] AND HAS BEEN INVOLVED WITH THE PLANNING TODAY. PT IN BED, CALL LIGHT IN REACH NO S&S OF DISTRESS NOTED, DAUGHTER AT THE BEDSIDE. O2 TITRATED DOWN TO 1L VIA NC AT THIS TIME WILL CHECK SATS AD TITRATE FURTHER.
--- NOTE | 2024-06-29 19:28 | NUR ---
PT DAUGHTER ASKING IF THE PT CAN HAVE A SCRIPT FOR A WHEEL CHAIR TO HELP HER WITH GETTING TO HER APPOINTMENTS. PT WAS TITRATED TO 1L VIA NC, SEEMED OK BUT BECAME EXTREMELY SOB WHEN AMBULATING TO THE BATHROOM. NIGHT RN AWARE.
[2024-06-29 20:20] VITALS: BP 149/62
[2024-06-30 02:57] VITALS: BP 135/59
--- NOTE | 2024-06-30 04:07 | NUR ---
SHIFT SUMMARY PATIENT HAD NO ACUTE CHANGES, AXOX 4 AND ONE ASSIST TO BSC. SOB W/EXERTION. ON 1L O2 NC. PIVS INTACT. IV ABX INFUSED. CBG 158. FAMILY PRESENT FOR A FEW HOURS. SLEPT MOST OF THE SHIFT. CALL LIGHT IN REACH. BED IN LOWEST POSITION. WILL CONTINUE TO MONITOR UNTIL DAY SHIFT NURSE ASSUMES CARE.
[2024-06-30 07:58] VITALS: BP 129/114
[2024-06-30] MEDS ORDERED: ELIQUIS5 M2 PO (11:04)
[2024-06-30] MEDS ORDERED: ACET325 PO (11:04)
[2024-06-30] MEDS ORDERED: BANATROL PLUS1 EAC1 PO (11:05)
[2024-06-30] MEDS ORDERED: DOXY100 PO (11:06)
--- NOTE | 2024-06-30 17:36 | NUR ---
DISCHARGE NOTE MS RODRIGUEZ IS OX4. S/B ASSISTANCE UP TO BSC AND CHAIR. DAUGHTER AT HER BEDSIDE ALL SHIFT, VERY SUPPORTIVE AND HELPFUL. SHE WAS DISCHARGED FROM [facility] TO HOME AT 1635 AFTER RECEIVING HOME OXYGEN AND WHEELCHAIR DELIVERY. DAUGHTER AND PT VERBALISED UNDERSTANDING OF WRITTEN AND VERBAL DISCHARGE INSTRUCTIONS. THEY DENIED ANY NEW QUESTIONS OR CONCERNS PRIOR TO DISCHARGE. L FA PIV REMOVED BY ACADEMIC ADVISER PRIOR TO DISCHARGE.
== END 2024-06-30 16:31 | disposition home health service (06) | DRG 175 ==
LOC: ER 17:58 → PCU 22:45 → MEDS 22:45 → ERHOLD 22:45 → PCU 06-23 00:30 → MEDS 06-28 00:29
PROVIDERS: Family Medicine; Student in an Organized Health Care Education/Training Program; ADMIT Student in an Organized Health Care Education/Training Program
DX: I26.99 Other pulmonary embolism without acute cor pulmonale (principal); J96.21 Acute and chronic respiratory failure with hypoxia; N13.6 Pyonephrosis; Z16.12 Extended spectrum beta lactamase (ESBL) resistance; C64.1 Malignant neoplasm of right kidney, except renal pelvis; C78.02 Secondary malignant neoplasm of left lung; C78.01 Secondary malignant neoplasm of right lung; C79.72 Secondary malignant neoplasm of left adrenal gland; C78.1 Secondary malignant neoplasm of mediastinum; Z66 Do not resuscitate; B96.1 Klebsiella pneumoniae [K. pneumoniae] as the cause of diseases classified elsewhere; E11.9 Type 2 diabetes mellitus without complications; E78.5 Hyperlipidemia, unspecified; K44.9 Diaphragmatic hernia without obstruction or gangrene; K21.9 Gastro-esophageal reflux disease without esophagitis; I10 Essential (primary) hypertension; E86.0 Dehydration; I48.0 Paroxysmal atrial fibrillation; Z96.0 Presence of urogenital implants; Z90.5 Acquired absence of kidney; Z93.6 Other artificial openings of urinary tract status; Z88.0 Allergy status to penicillin; Z79.82 Long term (current) use of aspirin; Z88.8 Allergy status to other drugs, medicaments and biological substances; Z79.891 Long term (current) use of opiate analgesic; Z99.81 Dependence on supplemental oxygen
CPT/HCPCS: 0241U; 36415; 71045; 71260; 80048; 80053; 81001; 82330; 82947; 83735; 83880; 84145; 85014; 85018; 85025; 85049; 85520; 85610; 85730; 87077; 87086; 87186; 93005; 93010; 93306; 94760; 94761; 94762; 97110; 97162; 97530; 99285-25; A9270; J0694; J0696; J1644; J7050; Q9967

== ENCOUNTER → 2024-07-18 | Outpatient (CLI) | payer OTHER ==
[~2024-07-18] MED LIST changes: +ACET325 PO; +AMLO5 PO; +BANATROL PLUS1 EAC1 PO; +DOXY100 PO; +ELIQUIS5 M2 PO; +NITR100CA PO
[2024-07-18 19:17] LABS: Albumin, Blood 2.7 g/dL (3.4-5.0); Albumin/Globulin Ratio 0.7 (0.8-1.8); Bilirubin, Total 0.5 mg/dL (0.1-1.0); Bun/Creatinine Ratio 13.4 (12.0-20.0); Calcium, Blood 9.8 mg/dL (8.5-10.1); Creatinine, Blood 1.19 mg/dL (0.40-1.00); Globulin, Blood 3.7 g/dL (2.2-4.0); Potassium, Blood 3.4 mmol/L (3.5-5.5); Thyroid Stimulating Hormone 1.13 uIU/mL (0.360-4.800); Total Protein, Blood 6.4 g/dL (6.4-8.2)
[2024-07-18 19:30] LABS: BASOPHILS ABSOLUTE AUTO 0.06 K/mm3 (0.00-0.23); BASOPHILS PERCENT AUTO 1 % (0-2); EOSINOPHILS ABSOLUTE AUTO 0.12 K/mm3 (0.00-0.68); EOSINOPHILS PERCENT AUTO 2 % (0-6); IMMATURE GRAN ABSOLUTE AUTO 0.01 K/mm3 (0.00-0.10); IMMATURE GRAN PERCENT AUTO 0 % (0-1); LYMPHOCYTES ABSOLUTE AUTO 1.93 K/mm3 (0.84-5.20); LYMPHOCYTES PERCENT AUTO 28 % (21-46); MONOCYTES ABSOLUTE AUTO 1.04 K/mm3 (0.16-1.47); MONOCYTES PERCENT AUTO 15 % (4-13); Mean Corpuscular HGB 29.2 pg (26.0-34.0); Mean Corpuscular HGB Conc 32.6 g/dL (31.5-36.5); Mean Corpuscular Volume 90 fL (80-100); Mean Platelet Volume 11.1 fL (9.1-12.4); NEUTROPHILS ABSOLUTE AUTO 3.84 K/mm3 (1.96-9.15); NEUTROPHILS PERCENT AUTO 55 % (41-73); Platelet Count 162 K/mm3 (150-400); RDW Coefficient Variation 14.8 % (11.7-14.2); RDW Standard Deviation 48.5 fL (35.1-46.3)
[2024-07-18 19:33] LABS: Free Thyroxine 1.15 ng/dL (0.70-1.60); T3 Uptake 36 % (30-39)
== END ==
LOC: LAB 17:12 → LAB SHORT 17:12
PROVIDERS: Internal Medicine Hematology & Oncology
DX: I26.99 Other pulmonary embolism without acute cor pulmonale (principal); I48.91 Unspecified atrial fibrillation; C64.1 Malignant neoplasm of right kidney, except renal pelvis
CPT/HCPCS: 80053; 84439; 84443; 84479; 85025

== ENCOUNTER 2024-08-06 23:25 | Emergency (ER) | payer OTHER ==
[~2024-08-06] VITALS: Ht 170.2 cm; Wt 79.4 kg
[2024-08-06] MEDS ORDERED: DiphenhydrAMINE HCl 50 MG/ML 1ML Vial IV ONE (23:55)
[2024-08-06] MEDS ORDERED: NS 1,000 ML IV SCH (23:55)
[2024-08-06] MEDS ORDERED: Acetaminophen 500 MG Tab PO ONE (23:55)
[2024-08-06] MEDS ORDERED: Prochlorperazine Edisylate 10 mg Vial IV ONE (23:55)
[2024-08-07 01:15] LABS: BASOPHILS ABSOLUTE AUTO 0.06 K/mm3 (0.00-0.23); BASOPHILS PERCENT AUTO 1 % (0-2); EOSINOPHILS ABSOLUTE AUTO 0.19 K/mm3 (0.00-0.68); EOSINOPHILS PERCENT AUTO 3 % (0-6); Hematocrit 51.6 % (33.0-51.0); Hemoglobin 16.8 g/dL (11.5-16.0); IMMATURE GRAN ABSOLUTE AUTO 0.01 K/mm3 (0.00-0.10); IMMATURE GRAN PERCENT AUTO 0 % (0-1); LYMPHOCYTES PERCENT AUTO 31 % (21-46); MONOCYTES ABSOLUTE AUTO 0.95 K/mm3 (0.16-1.47); MONOCYTES PERCENT AUTO 15 % (4-13); Mean Corpuscular HGB 28.9 pg (26.0-34.0); Mean Corpuscular HGB Conc 32.6 g/dL (31.5-36.5); Mean Corpuscular Volume 89 fL (80-100); Mean Platelet Volume 9.8 fL (9.1-12.4); NEUTROPHILS ABSOLUTE AUTO 3.09 K/mm3 (1.96-9.15); NEUTROPHILS PERCENT AUTO 50 % (41-73); Platelet Count 184 K/mm3 (150-400); RDW Coefficient Variation 15.1 % (11.7-14.2); RDW Standard Deviation 48.2 fL (35.1-46.3); Red Blood Cell Count 5.81 M/mm3 (3.80-5.20)
[2024-08-07 01:31] LABS: Bun/Creatinine Ratio 9.6 (12.0-20.0); Calcium, Blood 10.3 mg/dL (8.5-10.1); Creatinine, Blood 1.36 mg/dL (0.40-1.00); Potassium, Blood 3.2 mmol/L (3.5-5.5)
[2024-08-07] MEDS ORDERED: Magnesium Oxide 400 MG Tab PO ONE (01:35)
[2024-08-07] MEDS ORDERED: Potassium Chloride 20 MEQ TabCR PO ONE (01:35)
[2024-08-07 02:00] VITALS: BP 211/110
== END 2024-08-07 03:15 | disposition home or self-care (01) ==
LOC: ER 23:25
PROVIDERS: Emergency Medicine
DX: I16.0 Hypertensive urgency (principal); I10 Essential (primary) hypertension; E11.9 Type 2 diabetes mellitus without complications; E78.5 Hyperlipidemia, unspecified; I48.0 Paroxysmal atrial fibrillation; K21.9 Gastro-esophageal reflux disease without esophagitis; Z88.0 Allergy status to penicillin; Z88.8 Allergy status to other drugs, medicaments and biological substances; Z79.899 Other long term (current) drug therapy; Z79.01 Long term (current) use of anticoagulants
CPT/HCPCS: 70450; 80048; 85025; 96361; 96374; 96375; 99284-25; A9270; J0780; J1200; J7030

== ENCOUNTER → 2024-08-14 | Outpatient (CLI) | payer OTHER ==
[2024-08-14 09:23] LABS: BASOPHILS ABSOLUTE AUTO 0.06 K/mm3 (0.00-0.23); BASOPHILS PERCENT AUTO 1 % (0-2); EOSINOPHILS ABSOLUTE AUTO 0.13 K/mm3 (0.00-0.68); EOSINOPHILS PERCENT AUTO 2 % (0-6); Hematocrit 54.5 % (33.0-51.0); Hemoglobin 18.1 g/dL (11.5-16.0); IMMATURE GRAN ABSOLUTE AUTO 0.02 K/mm3 (0.00-0.10); IMMATURE GRAN PERCENT AUTO 0 % (0-1); LYMPHOCYTES PERCENT AUTO 39 % (21-46); MONOCYTES PERCENT AUTO 12 % (4-13); Mean Corpuscular HGB 28.9 pg (26.0-34.0); Mean Corpuscular HGB Conc 33.2 g/dL (31.5-36.5); Mean Corpuscular Volume 87 fL (80-100); Mean Platelet Volume 10.1 fL (9.1-12.4); NEUTROPHILS ABSOLUTE AUTO 3.47 K/mm3 (1.96-9.15); NEUTROPHILS PERCENT AUTO 46 % (41-73); Platelet Count 129 K/mm3 (150-400); RDW Coefficient Variation 15.9 % (11.7-14.2); RDW Standard Deviation 49.5 fL (35.1-46.3); Red Blood Cell Count 6.27 M/mm3 (3.80-5.20); White Blood Cell Count 7.48 K/mm3 (4.00-11.30)
[2024-08-14 10:04] LABS: Albumin, Blood 2.9 g/dL (3.4-5.0); Albumin/Globulin Ratio 0.7 (0.8-1.8); Bilirubin, Total 1.2 mg/dL (0.1-1.0); Bun/Creatinine Ratio 11.5 (12.0-20.0); Calcium, Blood 10.2 mg/dL (8.5-10.1); Creatinine, Blood 1.3 mg/dL (0.40-1.00); Free Thyroxine 1.1 ng/dL (0.70-1.60); Potassium, Blood 3.6 mmol/L (3.5-5.5); Thyroid Stimulating Hormone 7.12 uIU/mL (0.360-4.800); Total Protein, Blood 6.9 g/dL (6.4-8.2); Triiodothyronine, Free 2.15 pg/mL (2.18-3.98)
== END ==
LOC: LAB 08:44 → LAB SHORT 08:44 → LAB FUT 07-24 14:40 → EDSTATUS 07-24 14:40
PROVIDERS: Internal Medicine Hematology & Oncology
DX: C64.1 Malignant neoplasm of right kidney, except renal pelvis (principal); Z79.899 Other long term (current) drug therapy
CPT/HCPCS: 80053; 84439; 84443; 84481; 85025